=== PATIENT | male | born 1975 | race American Indian/Alaskan Native ===

== ENCOUNTER 2017-12-02 23:16 | Emergency (ER) | payer MEDICAID ==
[2017-12-03 01:07] LABS: Basophils % (Auto) 0.5 % (0.0-1.8); Eosinophils # (Auto) 0.2 K/mm3 (0.0-0.4); Eosinophils % (Auto) 2.3 % (0.0-4.3); Hemoglobin 14.5 gm/dl (11.8-15.2); Lymphocytes % (Auto) 35.5 % (13.4-35.0); Mean Corpuscular HGB Conc 33 % (32-34); Mean Corpuscular Hemoglobin 33 pg (28-32); Mean Corpuscular Volume 99 fl (84-94); Monocytes # (Auto) 0.7 K/mm3 (0.0-0.8); Monocytes % (Auto) 8.9 % (0.0-7.3); Platelet Count 142 K/mm3 (140-440); Red Blood Count 4.45 M/mm3 (3.65-5.03); Red Cell Distribution Width 13.9 % (13.2-15.2)
[2017-12-03 01:18] LABS: BUN/Creatinine Ratio 11; Blood Urea Nitrogen 9 mg/dL (9-20); Calcium 9.2 mg/dL (8.4-10.2); Hemolysis Index 16
--- NOTE | 2017-12-03 06:19 | Emergency Department Report ---
ED General Adult HPI - General Chief complaint: Medical Clearance Stated complaint: BACK PAIN Time Seen by Provider: 12/03/17 06:18 Source: patient, EMS Mode of arrival: Ambulatory Limitations: Altered Mental Status - History of Present Illness Initial comments: This is a 42-year-old male who states he felt a sensation like a "thumbtack" in his right flank. This occurred directly after lifting furniture. He was found sleeping on my encounter. Initially on his awakening he did not even recall why he was in the emergency department. However upon further questioning he did recall saying something about back pain to triage. He denies any symptoms. He is completely asymptomatic at this time. Apparently this cessation was rather brief and nonradiating. It did not involve any respiratory symptoms. He had no neurological change. -: Gradual Location: right (flank) Radiation: non-radiation Quality: sharp Consistency: constant Improves with: none Worsens with: none Associated Symptoms: denies other symptoms Treatments Prior to Arrival: none - Related Data Home Medications Medication Instructions Recorded Confirmed Last Taken Loxapine (Nf) [Loxitane Cap (Nf)] 50 mg PO HS 04/27/15 05/06/15 Unknown Paliperidone (Nf) [Invega] 12 mg PO HS 04/27/15 05/06/15 Unknown Previous Rx's Medication Instructions Recorded Last Taken Type Acetaminophen [Tylenol] 650 mg PO Q6HR PRN #30 tablet 05/06/15 Unknown Rx Benzocaine/Menthol [Cepacol Sore 1 each MM Q3HR PRN #15 lozenge 05/06/15 Unknown Rx Throat Lozenge] Ibuprofen [Motrin] 800 mg PO Q8HR PRN #30 tablet 05/06/15 Unknown Rx Naproxen [Naprosyn] 500 mg PO Q12H PRN #10 tablet 12/03/17 Unknown Rx Allergies Allergy/AdvReac Type Severity Reaction Status Date / Time No Known Allergies Allergy Unverified 09/19/14 20:04 ED Review of Systems ROS: Stated complaint: BACK PAIN Other details as noted in HPI Constitutional: denies: chills, fever Eyes: denies: eye pain, eye discharge, vision change ENT: denies: ear pain, throat pain Respiratory: denies: cough, shortness of breath, wheezing Cardiovascular: denies: chest pain, palpitations Endocrine: no symptoms reported Gastrointestinal: as per HPI. denies: abdominal pain, nausea, diarrhea Genitourinary: denies: urgency, dysuria Musculoskeletal: denies: back pain, joint swelling, arthralgia Skin: denies: rash, lesions Neurological: denies: headache, weakness, paresthesias Psychiatric: denies: anxiety, depression Hematological/Lymphatic: denies: easy bleeding, easy bruising ED Past Medical Hx - Past Medical History Previous Medical History?: Yes Hx Psychiatric Treatment: Yes (SCHIZO and BIPOLAR) - Surgical History Past Surgical History?: No - Social History Smoking Status: Current Every Day Smoker Substance Use Type: Alcohol, Marijuana - Medications Home Medications: Home Medications Medication Instructions Recorded Confirmed Last Taken Type Loxapine (Nf) [Loxitane Cap (Nf)] 50 mg PO HS 04/27/15 05/06/15 Unknown History Paliperidone (Nf) [Invega] 12 mg PO HS 04/27/15 05/06/15 Unknown History Acetaminophen [Tylenol] 650 mg PO Q6HR PRN #30 tablet 05/06/15 Unknown Rx Benzocaine/Menthol [Cepacol Sore 1 each MM Q3HR PRN #15 lozenge 05/06/15 Unknown Rx Throat Lozenge] Ibuprofen [Motrin] 800 mg PO Q8HR PRN #30 tablet 05/06/15 Unknown Rx Naproxen [Naprosyn] 500 mg PO Q12H PRN #10 tablet 12/03/17 Unknown Rx ED Physical Exam - General General appearance: alert, in no apparent distress - Head Head exam: Present: atraumatic, normocephalic - Eye Eye exam: Present: normal appearance. Absent: scleral icterus - ENT ENT exam: Present: mucous membranes moist - Neck Neck exam: Present: normal inspection. Absent: tenderness, meningismus - Respiratory Respiratory exam: Present: normal lung sounds bilaterally. Absent: respiratory distress - Cardiovascular Cardiovascular Exam: Present: regular rate, normal rhythm. Absent: systolic murmur, diastolic murmur, rubs, gallop - GI/Abdominal GI/Abdominal exam: Present: soft, normal bowel sounds. Absent: distended, tenderness, guarding, rebound, rigid - Rectal Rectal exam: Present: deferred - Extremities Exam Extremities exam: Present: normal inspection - Back Exam Back exam: Present: normal inspection, full ROM. Absent: tenderness, CVA tenderness (R), CVA tenderness (L), muscle spasm, paraspinal tenderness, vertebral tenderness - Neurological Exam Neurological exam: Present: alert, oriented X3, CN II-XII intact. Absent: motor sensory deficit - Psychiatric Psychiatric exam: Present: normal affect, normal mood - Skin Skin exam: Present: warm, dry, intact, normal color. Absent: rash ED Course Vital Signs 12/03/17 12/03/17 00:02 02:39 Temperature 99.2 F Pulse Rate 85 Respiratory 18 18 Rate Blood Pressure 121/85 O2 Sat by Pulse 98 100 Oximetry - Reevaluation(s) Reevaluation #1: This would appear to be a brief musculoskeletal pain. The patient is totally asymptomatic at this time. It does not appear to be appropriate to pursue additional medical screening in this gentleman with a normal exam and no complaints. He is directed to return to the emergency department for any recurrent symptoms. 12/03/17 06:46 Reevaluation #2: Patient denies being on any medicine. Apparently one would assume he is not compliant with his medicine for schizophrenia. At this time he is not complaining of 4 display any psychotic symptoms. He will be referred to [facility] for further evaluation 12/03/17 06:52 ED Medical Decision Making - Lab Data Result diagrams: 12/03/17 00:25 12/03/17 00:25 Laboratory Results - last 24 hr 12/03/17 12/03/17 12/03/17 00:25 00:25 00:25 WBC RBC Hgb Hct MCV MCH MCHC RDW Plt Count Lymph % (Auto) Waldo % (Auto) Eos % (Auto) Baso % (Auto) Lymph # Waldo # Eos # Baso # Seg Neutrophils % Seg Neutrophils # Sodium 141 Potassium 4.5 Chloride 102.7 Carbon Dioxide 29 Anion Gap 14 BUN 9 Creatinine 0.8 Estimated GFR > 60 BUN/Creatinine Ratio 11 Glucose 108 H Calcium 9.2 Salicylates < 0.3 L Acetaminophen < 5.0 L Plasma/Serum Alcohol 12/03/17 12/03/17 00:25 00:25 WBC 8.4 RBC 4.45 Hgb 14.5 Hct 44.0 MCV 99 H MCH 33 H MCHC 33 RDW 13.9 Plt Count 142 Lymph % (Auto) 35.5 H Waldo % (Auto) 8.9 H Eos % (Auto) 2.3 Baso % (Auto) 0.5 Lymph # 3.0 Waldo # 0.7 Eos # 0.2 Baso # 0.0 Seg Neutrophils % 52.8 Seg Neutrophils # 4.4 Sodium Potassium Chloride Carbon Dioxide Anion Gap BUN Creatinine Estimated GFR BUN/Creatinine Ratio Glucose Calcium Salicylates Acetaminophen Plasma/Serum Alcohol < 0.01 Critical care attestation.: If time is entered above; I have spent that time in minutes in the direct care of this critically ill patient, excluding procedure time. ED Disposition Clinical Impression: Right flank pain Schizophrenia Qualifiers: Schizophrenia type: unspecified Qualified Code(s): F20.9 - Schizophrenia, unspecified Disposition: DC- TO HOME OR SELFCARE Is pt being admited?: No Does the pt Need Aspirin: No Condition: Stable Instructions: Flank Pain (ED), Schizophrenia (ED) Additional Instructions: Return to the emergency department any recurrent pain. Otherwise follow-up with a primary care physician. Prescriptions: Naproxen [Naprosyn] 500 mg PO Q12H PRN #10 tablet PRN Reason: Pain Referrals: PRIMARY CARE, [Primary Care Provider] - 3-5 Days [facility] [Provider Group] - 3-5 Days [facility] [Outside] - 3-5 Days Time of Disposition: 06:47
[2017-12-03 09:11] VITALS: BP 110/70
== END 2017-12-03 09:14 | disposition home or self-care (01) ==
LOC: EEVIPCON 23:16 → ED 23:16
DX: R10.9 Unspecified abdominal pain (principal); F20.9 Schizophrenia, unspecified; F31.9 Bipolar disorder, unspecified; F17.200 Nicotine dependence, unspecified, uncomplicated; F12.90 Cannabis use, unspecified, uncomplicated
CPT/HCPCS: 36415; 80048; 85025; 99284; G0480; 80320